=== PATIENT | female | born 1955 | race Caucasian/White ===

== ENCOUNTER → 2017-05-27 12:50 | Outpatient (CLI) | payer SELFPAY | END | disposition home or self-care (01) | LOC: D.ECHO 12:50 | DX: R07.9 Chest pain, unspecified (principal) ==

== ENCOUNTER → 2017-08-05 16:26 | Outpatient (CLI) | payer SELFPAY ==
[2017-08-05 16:48] LABS: CHOL - HDL RATIO 3.2 ratio (2.3-4.1); LDL-HDL RATIO 1.6 ratio (1.5-3.5)
== END | disposition home or self-care (01) ==
LOC: D.LABREF 16:26
PROVIDERS: Internal Medicine Cardiovascular Disease
DX: E78.5 Hyperlipidemia, unspecified (principal)

== ENCOUNTER → 2017-12-31 10:47 | Outpatient (CLI) | payer SELFPAY | END | disposition home or self-care (01) | LOC: D.RT 10:47 | DX: I10 Essential (primary) hypertension (principal); J20.9 Acute bronchitis, unspecified; R07.1 Chest pain on breathing; R06.09 Other forms of dyspnea; E78.5 Hyperlipidemia, unspecified ==

== ENCOUNTER → 2019-04-04 11:23 | Outpatient (CLI) | payer MEDICARE, OTHER ==
--- NOTE | 2019-04-07 10:26 | EC ---
PATIENT:ELLEN WORKMAN DATE OF SERVICE: 04/04/19 SEX: F MEDICAL RECORD: [id number] DATE OF : [birth year] [facility] AGE OF PATIENT: 63 ADMISSION DATE: 04/04/19 REFERRING PHYSICIAN: INTERPRETING PHYSICIAN: ADRIANE MAYFIELD MD ECHOCARDIOGRAM REPORT ECHO CHARGES 4 ECHO COMPLETE Date: 04/04/19 CLINICAL DIAGNOSIS: MURMUR/FATIGUE H/O HTN ECHOCARDIOGRAPHIC MEASUREMENTS (adult normal given) AC root (d.<3.7cm) 2.3 cm LV Septum d (<1.2 cm> 0.9 cm Valve Excursion 1.1 cm LV Septum (systole) 1.5 cm Left Atria (s.<4.0cm> 3.7 cm LVPW d(<1.2cm) 0.9 cm RV (d.<2.3cm) 2.4 cm LVPW (sytole) 1.2 cm LV diastole(<5.6CM) 5.2 cm MV E-F(>70mm/sec) cm LV systole 3.7 cm LVOT Diameter 1.6 cm MV exc.(>10mm) cm Est.ejection fraction (50-75%) % DOPPLER: LVIT cm/sec A 74.0 cm/sec E 79.0 cm/sec LA cm/sec RVSP 33.2 mmHg LVOT 112 cm/sec AOP1/2T m/s Asc. Ao 180 cm/sec RVOT 73.0 cm/sec RA cm/sec PA 114 cm/sec AV Gradient Peak 13.0 mmHg AV Mean 6.2 mmHg AV Area 1.1 cm MV Gradient Peak 3.7 mmHg MV Mean 1.2 mmHg MV Area cm COMMENTS: OP - HC Computer Systems Software Engineer: 1 WILBERT CARLOS Equity Trader: 3 Dr. Wrgiht TAPE# PACS Pericardial Effusion N DATE OF SERVICE: Adequate 2D, color flow, spectral Doppler, and M-Mode. No LVH. LV internal dimension is normal. Wall motion is normal. EF is greater than or equal to 55%. Aortic valve is tricuspid. No evidence of stenosis by Doppler interrogation. Left atrium is normal. Mitral valve shows no prolapse. Trace MR. Right-sided chambers grossly normal. Trace TR on color flow imaging. TRANSINT:[id number] Voice Confirmation ID: [id number] DOCUMENT ID: [id number] ECHOCARDIOGRAM REPORT [id number] ELLEN WORKMAN,ADRIANE Cronin MD at 1026 CC: [id number] DICTATION DATE: 04/05/19 1436 SANITARY ENGINEERING TEACHER: 04/05/19 1541 DEP CLI 04/04/19 [place] [id number] [place] [id number]
== END | disposition home or self-care (01) ==
LOC: D.HCCARDIO 11:23
PROVIDERS: ATTEND Internal Medicine Interventional Cardiology
DX: I10 Essential (primary) hypertension (principal)

== ENCOUNTER 2019-08-08 08:00 | Outpatient (CLI) | payer MEDICARE, OTHER | END 2019-08-08 23:59 | disposition home or self-care (01) | LOC: D.MAMMO 08:00 | PROVIDERS: ATTEND Family Medicine | DX: Z12.31 Encounter for screening mammogram for malignant neoplasm of breast (principal) ==

== ENCOUNTER 2019-09-07 09:00 | Outpatient (CLI) | payer MEDICARE, OTHER | END 2019-09-07 10:00 | disposition home or self-care (01) | LOC: D.MAMMO 09:00 | PROVIDERS: ATTEND Family Medicine | DX: R92.8 Other abnormal and inconclusive findings on diagnostic imaging of breast (principal) ==

== ENCOUNTER → 2020-03-27 11:25 | Outpatient (CLI) | payer MEDICARE, OTHER ==
--- NOTE | 2020-03-28 11:14 | EC ---
PATIENT:ELLEN WORKMAN DATE OF SERVICE: 03/27/20 SEX: F MEDICAL RECORD: [id number] DATE OF : [birth year] LOCATION:[facility] AGE OF PATIENT: 64 ADMISSION DATE: 03/27/20 REFERRING PHYSICIAN: INTERPRETING PHYSICIAN: ADRIANE MAYFIELD MD ECHOCARDIOGRAM REPORT ECHO CHARGES 4 ECHO COMPLETE Date: 03/27/20 CLINICAL DIAGNOSIS: CAD/HTN ECHOCARDIOGRAPHIC MEASUREMENTS (adult normal given) AC root (d.<3.7cm) 2.9 cm LV Septum d (<1.2 cm> 0.90 cm Valve Excursion 1.0 cm LV Septum (systole) 1.2 cm Left Atria (s.<4.0cm> 3.8 cm LVPW d(<1.2cm) 1.1 cm RV (d.<2.3cm) 3.7 cm LVPW (sytole) 1.3 cm LV diastole(<5.6CM) 4.1 cm MV E-F(>70mm/sec) cm LV systole 3.0 cm LVOT Diameter 1.6 cm MV exc.(>10mm) 1.1 cm Est.ejection fraction (50-75%) % DOPPLER: LVIT cm/sec A 79.0 cm/sec E 89.0 cm/sec LA cm/sec RVSP 23 mmHg LVOT 105 cm/sec AOP1/2T m/s Asc. Ao 148 cm/sec RVOT 82 cm/sec RA cm/sec PA 144 cm/sec AV Gradient Peak 8.79 mmHg AV Mean 4.53 mmHg AV Area 1.4 cm MV Gradient Peak 3.87 mmHg MV Mean 1.52 mmHg MV Area cm COMMENTS: Balloon Pilot: 2 STEVE LAN Assistant Printer Floor Covering: 3 Dr. Wright TAPE# PACS Pericardial Effusion N DATE OF SERVICE: Adequate 2D, color flow imaging, spectral Doppler, and M-Mode. No LVH. LV internal dimension is normal. Wall motion is normal. EF is greater than or equal to 55%. Aortic valve is tricuspid. No evidence of stenosis by Doppler interrogation. The left atrium is normal. Mitral valve shows no prolapse. Trace MR. Right-sided chambers are grossly normal. Trace TR. TRANSINT:[id number] Voice Confirmation ID: [id number] DOCUMENT ID: [id number] ECHOCARDIOGRAM REPORT [id number] JI,ADRIANE ALEJANDRO MD at 1114 CC: [id number] DICTATION DATE: 03/27/20 1301 DOWEL SETTING MACHINE OPERATOR: 03/28/20 0014 DEP CLI 03/27/20 [place] [id number] [place] [address]
== END | disposition home or self-care (01) ==
LOC: D.HCCECHO 11:25
PROVIDERS: ATTEND Internal Medicine Interventional Cardiology
DX: I10 Essential (primary) hypertension (principal)

== ENCOUNTER → 2021-04-10 12:57 | Outpatient (CLI) | payer MEDICARE, OTHER ==
--- NOTE | ~2021-04-10 | EC ---
PATIENT:ELLEN WORKMAN DATE OF SERVICE: 04/10/21 SEX: F MEDICAL RECORD: [id number] DATE OF : [birth year] LOCATION:[facility] AGE OF PATIENT: 65 ADMISSION DATE: 04/10/21 REFERRING PHYSICIAN: INTERPRETING PHYSICIAN: ADRIANE MAYFIELD MD ECHOCARDIOGRAM REPORT ECHO CHARGES 4 ECHO COMPLETE Date: 04/10/21 CLINICAL DIAGNOSIS: ASSESS, EF, MR, TR, HX: HTN, CAD ECHOCARDIOGRAPHIC MEASUREMENTS (adult normal given) AC root (d.<3.7cm) 2.9 cm LV Septum d (<1.2 cm> 1.3 cm Valve Excursion 1.5 cm LV Septum (systole) 1.5 cm Left Atria (s.<4.0cm> 3.7 cm LVPW d(<1.2cm) 0.9 cm RV (d.<2.3cm) 2.7 cm LVPW (sytole) 1.5 cm LV diastole(<5.6CM) 4.4 cm MV E-F(>70mm/sec) cm LV systole 3.1 cm LVOT Diameter 1.3 cm MV exc.(>10mm) 1.4 cm Est.ejection fraction (50-75%) % DOPPLER: LVIT cm/sec A 73 cm/sec E 69 cm/sec LA cm/sec RVSP 31 mmHg LVOT 99 cm/sec AOP1/2T m/s Asc. Ao 151 cm/sec RVOT 76 cm/sec RA cm/sec PA 108 cm/sec AV Gradient Peak 9.1 mmHg AV Mean 5.5 mmHg AV Area 0.9 cm MV Gradient Peak 3.8 mmHg MV Mean 2.0 mmHg MV Area cm COMMENTS: Flour Blender Helper: Sheba OTT Content Architect: 3 Dr. Wright TAPE# Pericardial Effusion N DATE OF SERVICE: Adequate 2D, color flow imaging, spectral Doppler, and M-Mode. FINDINGS: No LVH. LV internal dimension is normal. Wall motion is normal. EF is greater than or equal to 55%. Aortic valve is tricuspid. No evidence of stenosis by Doppler interrogation. Left atrium is normal at 3.7 cm. Mitral valve shows no prolapse. Trace MR. Ride side is grossly normal. Trace TR. TRANSINT:[id number] Voice Confirmation ID: [id number] DOCUMENT ID: [id number] ECHOCARDIOGRAM REPORT [id number] ELLEN WORKMAN GREGORY A MD CC: [id number] DICTATION DATE: 04/11/21 1507 COMMISSARY PRODUCTION SUPERVISOR: 04/11/211919 DEP CLI 04/10/21 [place] [id number] [place] [id number]
== END | disposition home or self-care (01) ==
LOC: D.HCCECHO 04-02 13:00
PROVIDERS: ATTEND Internal Medicine Interventional Cardiology
DX: I10 Essential (primary) hypertension (principal)